=== PATIENT | female | born 1970 | race Two or more races ===

== ENCOUNTER 2024-11-28 23:42 | Emergency (ER) | payer BC ==
[~2024-11-28] VITALS: Ht 165.1 cm; Wt 71.2 kg
[2024-11-28] MEDS ORDERED: PEPCID AC10 MG (23:54)
[2024-11-28] MEDS ORDERED: TOPROL XL25 M1 (23:54)
[2024-11-28] MEDS ORDERED: ZOFRAN8 MG (23:54)
[2024-11-28] MEDS ORDERED: CHILDREN'S ASPI81 MG (23:54)
[2024-11-28] MEDS ORDERED: ACID REDUCER20 M1 (23:55)
[2024-11-28] MEDS ORDERED: ATORVASTATIN CA10 MG (23:55)
[2024-11-28] MEDS ORDERED: [UNRECOGNIZED DRUG - OTHER] TP (23:55)
[2024-11-28] MEDS ORDERED: LASIX20 MG (23:55)
[2024-11-28] MEDS ORDERED: MOVANTIK12.5 MG PO (23:56)
[2024-11-29] MEDS ORDERED: ENOXAPARIN SODIUM 60 MG/0.6 ML SYRINGE SUBCUTANEO ONE (03:22)
[2024-11-29 04:01] LABS: HEMOGLOBIN 14.8 g/dL (12.0-15.00); MEAN CELL VOLUME 87.8 fL (80.00-100.00); MEAN CORPUSCULAR HEMOGLOBIN 30.1 pg (27.00-32.0); MEAN CORPUSCULAR HGB CONC 34.3 g/dl (32.0-36.0); PLATELET COUNT 265 K/uL (150-450); RED CELL DISTRIBUTION WIDTH 14.2 % (11.5-14.5)
[2024-11-29 04:20] LABS: INR 0.98; PROTHROMBIN TIME 10.7 SECONDS (9.0-11.5)
[2024-11-29 04:26] LABS: ALBUMIN 3.6 gm/dL (3.4-5.0); BILIRUBIN TOTAL 0.33 mg/dL (0.3-1.2); CALCIUM 9.2 mg/dL (8.5-10.1); CREATININE SERUM 0.91 mg/dL (0.55-1.02); GFR 63.95; GLOBULINA 3.5 G/DL (2.4-3.5); POTASSIUM 3.76 mEq/L (3.5-5.1); TOTAL PROTEIN 7.1 gm/dL (6.4-8.2)
[2024-11-29 04:30] LABS: D DIMER 0.55 MG/L; PARTIAL THROMBOPLASTIN TIME 28.5 SECONDS (22.0-34.0)
[2024-11-29] MEDS ORDERED: KETOROLAC TROMETHAMINE 60 MG VIAL IM ONE (05:00)
== END 2024-11-29 10:51 | disposition home or self-care (01) ==
LOC: ER 23:44
PROVIDERS: General Practice
DX: M79.605 Pain in left leg (principal); I10 Essential (primary) hypertension; I99.8 Other disorder of circulatory system; Z88.8 Allergy status to other drugs, medicaments and biological substances